=== PATIENT | female | born 1955 | race American Indian/Alaskan Native ===

== ENCOUNTER 2017-07-29 13:58 | Emergency (ER) | payer MEDICAID, OTHER ==
[2017-07-29 14:29] VITALS: BP 145/65; PULSE 64; RESP 19; TEMP 97; O2SAT 98
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
== END 2017-07-29 16:33 | disposition home or self-care (01) ==
LOC: H.ER 13:58
DX: S86.112A Strain of other muscle(s) and tendon(s) of posterior muscle group at lower leg level, left leg, initial encounter (principal); S63.502A Unspecified sprain of left wrist, initial encounter; V43.62XA Car passenger injured in collision with other type car in traffic accident, initial encounter; Y92.410 Unspecified street and highway as the place of occurrence of the external cause